=== PATIENT | female | born 1985 | race Caucasian/White ===

== ENCOUNTER → 2019-07-21 | Outpatient (CLI) | payer BC | LOC: DIA.ED 10:59 | DX: O24.419 Gestational diabetes mellitus in pregnancy, unspecified control (principal); Z3A.30 30 weeks gestation of pregnancy | CPT/HCPCS: G0108 ==

== ENCOUNTER 2019-09-21 02:23 | Inpatient (IN) | payer BC ==
[~2019-09-21] VITALS: Ht 157.5 cm; Wt 73.2 kg
[2019-09-21] VITALS (21 sets, daily range): BP systolic 95–157; BP diastolic 61–90; PULSE 69–106; TEMP 97.4–98.7
[2019-09-21] MEDS ORDERED: BENADRYL25 M2 PO (02:52)
[2019-09-21] MEDS ORDERED: PRENATAL MVI (02:52)
[2019-09-21 03:21] LABS: BASO # 0.1 (0.0-0.2); EOS # 0.3 (0.0-0.7); GRAN # 6.3 (1.4-6.5); GRAN % 66.7 % (42.2-75.2); HEMATOCRIT 39.2 % (37.0-47.0); HEMOGLOBIN 13.2 g/dl (12.5-16.0); LYMPH # 2.1 (1.2-3.4); LYMPH % 21.9 % (20.0-51.0); MEAN CELL VOLUME 88 fl (80.0-100.0); MEAN CORPUSCULAR HEMOGLOBIN 30 pg (27.0-31.0); MEAN CORPUSCULAR HGB CONC 34 g/dl (33.0-37.0); MEAN PLATELET VOLUME 11.3 fl (7.4-10.4); MONO # 0.7 (0.1-0.6); MONO % 6.9 % (1.7-9.3); PLATELET COUNT 233 K/mm3 (130-400); RED BLOOD COUNT 4.46 M/mm3 (4.10-5.30); REDCELL DISTRIBUTION WIDTH-CV 13.6 % (11.5-14.5)
--- NOTE | 2019-09-21 05:00 | NUR ---
0225- Patient and ambulatory to LDR-6. Patient oriented to room. Patient into restroom to change into gown. Patient here with complaints of a "a large gush of hydrated, pee-like fluid" at 0200. Patient states she is having contractions but has not timed them but believes they are about 10 minutes apart. Patient reports good movement. Patient denies bleeding or spotting. 0233- EFM and TOCO on and tracing. 0235- SVE Breech/-2 by this RN. Amniotest inconclusive. conciliation court judge notified. 0240- conciliation court judge, [place], at bedside. SVE Breech /-2. Amniotest positive. 0245- Assessment completed. 0255- See Physician Notification. Orders to admit received. 0300- TOM Hernández notified. IV started and labs drawn/sent by GEOFFREY Dodson. 0339- EFM and TOCO removed. Patient ambulatory to OR. 0345- EFM and TOCO on and tracing in OR. Monitor is not printing strip at this time. 0350- Ok per to remove EFM and TOCO to prep for delivery. 0400- Gaitan catheter inserted. SCD's applied. 0413- Primary delivery of viable female . Cord clamped and cut by . Baby bulb suction by . Baby dried and stimulated by . [place] care assumed by GEOFFREY Sanford. 0415- Placenta removed. 0500- TAP Block by TOM Hernández. 0515- PACU Admission. 0545- PACU Discharge. 0600- PP Recovery.
--- NOTE | 2019-09-21 11:45 | NUR ---
Pt here from ER in wheelchair, G1 37.1 weeks gestation. Pt to EF, explained. Pt c/o contractions that started last evening. SVE: /high per Jackie HALE. Assessment complete. Pt Gestation DM, requiring insulin at bedtime. Pt denies any leaking of fluid or vaginal bleeding. Pt has not checked Blood sugar today, this nurse checked blood sugar and 135. Mother of pt at bedside. Irregular contractions noted, this nurse palaptes and mild at this time. Will monitor and call physician.
[2019-09-22 08:10] VITALS: BP 112/63; PULSE 96; TEMP 97.7
--- NOTE | 2019-09-22 09:36 | NUR ---
Initial visit; Patient thanked Crowning Inspector for looking in on her and offering congratulations for the of their daughter. Crowning Inspector thanked family for choosing [facility].
[2019-09-22 17:03] VITALS: BP 129/80; PULSE 97; TEMP 98
[2019-09-22 20:30] VITALS: BP 130/77; PULSE 93; TEMP 98.2
[2019-09-23 08:15] VITALS: BP 128/76; PULSE 90; TEMP 97.6
[2019-09-23] MEDS ORDERED: IBU600 MG PO (10:53)
[2019-09-23] MEDS ORDERED: PERCOCET 325 MG1 TA2 PO (10:55)
== END 2019-09-23 14:20 | disposition home or self-care (01) | DRG 788 ==
LOC: LDRO 02:23 → LDR 03:00 → OB 03:00
PROVIDERS: ADMIT Obstetrics & Gynecology
PROC: 10D00Z1 Extraction of Products of Conception, Low, Open Approach (ICD-10-PCS; principal; 2019-09-21)
DX: O32.1XX0 Maternal care for breech presentation, not applicable or unspecified (principal); Z37.0 Single live birth; Z3A.39 39 weeks gestation of pregnancy; O99.344 Other mental disorders complicating childbirth; F32.9 Major depressive disorder, single episode, unspecified; O34.03 Maternal care for unspecified congenital malformation of uterus, third trimester; Q51.3 Bicornate uterus; O24.420 Gestational diabetes mellitus in childbirth, diet controlled; O34.13 Maternal care for benign tumor of corpus uteri, third trimester; D25.9 Leiomyoma of uterus, unspecified; F41.9 Anxiety disorder, unspecified; O99.284 Endocrine, nutritional and metabolic diseases complicating childbirth; E28.2 Polycystic ovarian syndrome; O99.824 Streptococcus B carrier state complicating childbirth
CPT/HCPCS: J0690; J1885; J2270; J2370; J2405; J2550; J2590; J7120

== ENCOUNTER → 2021-04-12 | Outpatient (CLI) | payer BC ==
[~2021-04-12] MED LIST: BENADRYL25 M2 PO; IBU600 MG PO; PERCOCET 325 MG1 TA2 PO; PRENATAL MVI
== END ==
LOC: MC.RAD 12:58
DX: N63.10 Unspecified lump in the right breast, unspecified quadrant (principal)

== ENCOUNTER 2022-02-15 14:20 | Inpatient (IN) | payer BC ==
[~2022-02-15] VITALS: Ht 157.5 cm; Wt 69.2 kg
[2022-02-15] VITALS (18 sets, daily range): BP systolic 92–151; BP diastolic 50–94; PULSE 78–114; TEMP 97.9
--- NOTE | 2022-02-15 14:25 | NUR ---
826489.0, G3L1 arrives on unit with c/o SROM at 1330 this afternoon for clear fluid. Ambulatory to LDR3 with spouse. Reports normal movement. Denies any VB. Reports ctx every 10min. Changes into clean gown. 1430EFM explained and placed. Tracing well. Amnitest+. Clear fluid noted to glove. SVE Cl/Th/Hi. Assessment completed. VS obtained.
[2022-02-15] MEDS ORDERED: UNISOM25 MG PO (14:44)
--- NOTE | 2022-02-15 15:30 | NUR ---
Assumed care of patient. Report given by Shelly reyes
[2022-02-15 15:36] LABS: BASO % 0.5 % (0.0-2.0); EOS # 0.2 K/mm3 (0.0-0.7); EOS % 2.2 % (0.0-4.0); GRAN # 6.4 K/mm3 (1.4-6.5); GRAN % 73.3 % (42.2-75.2); HEMATOCRIT 37.4 % (37.0-47.0); HEMOGLOBIN 12.7 g/dl (12.5-16.0); LYMPH # 1.6 K/mm3 (1.2-3.4); LYMPH % 17.8 % (20.0-51.0); MEAN CELL VOLUME 85 fl (80.0-100.0); MEAN CORPUSCULAR HEMOGLOBIN 29 pg (27-31); MEAN CORPUSCULAR HGB CONC 34 g/dl (33.0-37.0); MONO # 0.5 K/mm3 (0.1-0.6); MONO % 5.9 % (1.7-9.3); PLATELET COUNT 245 K/mm3 (130-400); RED BLOOD COUNT 4.38 M/mm3 (4.10-5.30); REDCELL DISTRIBUTION WIDTH-CV 13.1 % (11.5-14.5)
--- NOTE | 2022-02-15 16:20 | NUR ---
Ambulates to the o.r. for section with this nurse and spouse.
--- NOTE | 2022-02-15 17:30 | NUR ---
To pacu via bed with this nurse and anesthesia Raghav. Alert, stable. Denies any pain at this time. Nibp on, 3 leads on, scds on.
--- NOTE | 2022-02-15 17:40 | NUR ---
Rests in bed, alert. Denies any discomfort or pain at this time.
--- NOTE | 2022-02-15 17:50 | NUR ---
Rests in bed, alert. Nursery nurse Mary brought baby in. Holds baby lovingly. Attempts to breast feed.
--- NOTE | 2022-02-15 18:00 | NUR ---
Dismissed from pacu. To room 210 via bed holding baby with this nurse and father.
[2022-02-16 00:10] VITALS: BP 110/60; PULSE 78; TEMP 97.8
[2022-02-16 05:30] VITALS: BP 108/61; PULSE 59; TEMP 97.5
[2022-02-16 07:40] VITALS: BP 123/69; PULSE 66; TEMP 97.9
[2022-02-16] MEDS ORDERED: PERCOCET 325 MG1 TA2 PO (08:41)
[2022-02-16] MEDS ORDERED: IBU800 M1 PO (08:41)
--- NOTE | 2022-02-16 09:07 | NUR ---
Initial visit attempt; Nurse with patient. Supervisor Audit Clerks left card offering congratulations and God's blessings for the of their son and information regarding the availability of spiritual care at our hospital.
[2022-02-16 12:20] VITALS: BP 101/63; PULSE 74; TEMP 97.4
[2022-02-16 16:20] VITALS: BP 117/78; PULSE 75; TEMP 97.2
[2022-02-16 20:00] VITALS: BP 110/69; PULSE 81; TEMP 98.4
[2022-02-17 06:45] VITALS: BP 120/72; PULSE 79; TEMP 97.4
--- NOTE | 2022-02-17 07:57 | NUR ---
Percocet 5/325 mg one given per request and as ordered.
--- NOTE | 2022-02-17 14:00 | NUR ---
Rests in bed, alert. Discharge instructions given. Verbalizes understanding.
== END 2022-02-17 14:30 | disposition home or self-care (01) | DRG 788 ==
LOC: LDRO 14:20 → OB 14:56 → LDR 14:56 → OB 18:15
PROVIDERS: ADMIT Student in an Organized Health Care Education/Training Program
PROC: 10D00Z1 Extraction of Products of Conception, Low, Open Approach (ICD-10-PCS; principal; 2022-02-15)
DX: O34.211 Maternal care for low transverse scar from previous cesarean delivery (principal); O24.420 Gestational diabetes mellitus in childbirth, diet controlled; O99.344 Other mental disorders complicating childbirth; F32.A Depression, unspecified; F41.3 Other mixed anxiety disorders; O34.13 Maternal care for benign tumor of corpus uteri, third trimester; D25.9 Leiomyoma of uterus, unspecified; O34.03 Maternal care for unspecified congenital malformation of uterus, third trimester; Q51.3 Bicornate uterus; Z3A.37 37 weeks gestation of pregnancy; Z37.0 Single live birth
CPT/HCPCS: J0690; J1100; J1885; J2370; J2405; J2590; J7120